=== PATIENT | female | born 1980 | race Caucasian/White ===

== ENCOUNTER 2023-12-19 20:44 | Outpatient (REF) | payer OTHER, SELFPAY ==
[2023-12-23 11:13] LABS: Age Gdln ACOG Testing Note (.); HPV Aptima Negative (Negative); IGP, Aptima HPV, rfx 16/18,45 Note (.)
== END 2023-12-19 20:45 | disposition home or self-care (01) ==
LOC: LAB 20:44
PROVIDERS: Visit Provider Physician Assistant
DX: Z01.419 Encounter for gynecological examination (general) (routine) without abnormal findings (principal)
CPT/HCPCS: 87624; G0145

== ENCOUNTER 2024-05-02 13:43 | Outpatient (OUT) | payer OTHER, SELFPAY ==
--- NOTE | 2024-05-02 | MM_ITS ---
Patient Name: DAMIAN TORRES MR#: [id number] : 1980 Exam Date: 05/02/2024 Ordering Doctor: DR Conner Cobb . RADIOLOGY REPORT PROCEDURE: MM TOMOSYNTHESIS SCREENING BI COMPARISON: [facility] MAMM SCREEN 3D [facility] CAD, 11/18/2022. MG MAMM SCREEN 3D [facility] CAD, 07/08/2021. INDICATIONS: Screening for malignant neoplasm Calculator Name NCI Breast Cancer Risk Assessment Tool 5 Year Breast Cancer Risk 0.90% Lifetime Breast Cancer Risk 13.40% Personal Breast Cancer No Personal Ovarian Cancer No Treatments None Family Cancers Grandmother-maternal with throat cancer at age ~58. LOCATION: [facility] BREAST COMPOSITION: There are scattered areas of fibroglandular density. FINDINGS: DIAGNOSTIC CATEGORY 2--BENIGN FINDING. NO CHANGE FROM COMPARISON. Scattered benign-appearing calcifications are present. Scattered benign-appearing lymph nodes are present. RIGHT BREAST: No significant suspicious finding. LEFT BREAST: No significant suspicious finding. RECOMMENDATIONS: ROUTINE MAMMOGRAM AND CLINICAL EVALUATION IN 12 MONTHS. PLEASE NOTE: A NORMAL MAMMOGRAM DOES NOT EXCLUDE THE POSSIBILITY OF BREAST CANCER. A CLINICALLY SUSPICIOUS PALPABLE LUMP SHOULD BE BIOPSIED. Dictated by: Rudy Guerrero MD on 05/02/2024 at 15:38 Approved by: Rudy Guerrero MD on 05/02/2024 at 15:39
--- OUTSIDE RECORDS SUMMARY | 2024-05-02 14:05 | XMS_ITS | CCD ---
Author Organization [facility] Care Team Providers Care German Instructor Name Role Phone PHYSICIAN, DEFAULT Unavailable Unavailable PHYSICIAN, DEFAULT Unavailable Unavailable EBRAHEIM, CLAUDIA Unavailable Unavailable EBRAHEIM, CLAUDIA Unavailable Unavailable ZEV CARMONA Unavailable Unavailable IVON CERVANTES Unavailable Unavailable ATTARAN, JOCELYNE Unavailable Unavailable ATTARAN, JOCELYNE Unavailable Unavailable Christian Ham Primary Care Physician Unavail able Christian Ham Unavailable Unavailable Christian Ham Primary Care Physician Unavail able Berta Almeida Unavailable ADRY, DR LUIS Meyer Consulting Unavailable HELEN, DR DEL VALLE Primary Care Unavailable KRISTA ., DR GALLOWAY Attending Unavailable KRISTA ., DR GALLOWAY Admitting Unavailable KRISTA ., DR GALLOWAY Consulting Unavailable HELEN, DR DEL VALLE Primary Care Unavailable KRISTA ., DR GALLOWAY Consulting Unavailable KRISTA ., DR GALLOWAY Attending Unavailable KRISTA ., DR GALLOWAY Admitting Unavailable NILESH VELASCO Attending Unavailable Medications Current Medications Medication Drug Class(es) Dates Sig (Normalized) Sig (Original) Citalopram (3 sources) Serotonin Reuptake Inhibitor Citalopram Hydrobrom madhavi Active take 1 tablet by mouth once fahad y citalopram 10 mg oral tablet take 1 tablet (10 mg) by oral route once daily fluticasone propionate 0.05 mg/actuat metered dose nasal spray (1 source) Corticosteroid Start: 07-03-2022 take 2 spray(s) nasal route once daily Fluticasone Propionate 50 MCG/ACT 2 sprays Nasally Once a day for 14 day(s) Jun, Active predniSONE 20 mg oral tablet (1 source) Start: 07-03-2022 take 1 tablet by mouth every twelve hours predniSONE 20 MG 1 tablet Orally 2 times a day for 5 day(s) Jun, Active Completed/Discontinued Medications Medication Drug Class(es) Dates Sig (Normalized) Sig (Original) ascorbic acid 500 mg oral tablet (2 sources) Vitamin C Vitamin C 500 mg oral tablet folic acid 0.4 mg oral tablet (2 sources) take 1 tablet by mouth once daily folic acid 400 mcg oral tablet take 1 tablet (0.4 mg) by oral route once daily ketoconazole 20 mg/ml medicated shampoo (2 sources) Azole Antifungal Start: 01-15-2020 ketoconazole 2 % topical shampoo 01/15/2020 apply shampoo by topical route 2-3 times weekly norethindrone acetate 5 mg oral tablet (2 sources) take 3 tablets by mouth once daily norethindrone acetate 5 mg oral tablet take 3 tablets (15 mg) by oral route once daily 28 mg iron- 800 mcg oral tablet (2 sources) 28 mg iron- 800 mcg oral tablet triamcinolone acetonide 1 mg/ml topical cream (1 source) Corticosteroid Start: 09-10-2020 apply 1 g topically twice daily triamcinolone acetonide 0.1 % topical cream 09/10/2020 apply twice daily to affected area until flat; avoid on face and skin folds. Dispense 80 gm vitamin b6 100 mg oral tablet (2 sources) pyridoxine (dasha min B6) 100 mg oral tablet Problems Active Problems Problem Classification Problem Date Documented Date Episodic/Chronic Allergic reactions (3 sources) Contact dermatitis and other eczema, unspecified cause; Translations: [Dermatitis, unspecified] Onset: 01-15-2020 Episodic Immunizations and screening for infectious disease (1 source) Encounter for screening for human papillomavirus (HPV); Translations: [ENC SCREENING HUMAN PAPILLOMAVIRUS] Onset: 11-17-2022 Episodic Menstrual disorders (1 source) Secondary oligomenorrhea; Translations: [Secondary oligomenorrhea] Onset: 04-10-2018 Chronic Other and unspecified benign neoplasm (1 source) Benign neoplasm of skin, site unspecified Onset: 01-15-2020 Episodic Other and unspecified benign neoplasm (1 source) Hemangioma of skin and subcutaneous tissue Onset: 01-15-2020 Episodic Other screening for suspected conditions (not mental disorders or infectious disease) (8 sources) Encounter for screening mammogram for malignant neoplasm of breast; Translations: [Encounter for screening for malignant neoplasm of cervix] Onset: 11-15-2022 Episodic Other skin disorders (1 source) Other specified diseases of hair and hair follicles Onset: 01-15-2020 Episodic Other skin disorders (1 source) Hypertrophic scar Onset: 09-10-2020 Episodic Other skin disorders (1 source) Epidermal cyst Onset: 09-10-2020 Episodic Other upper respiratory infections (1 source) Acute laryngitis Episodic Residual codes; unclassified (1 source) Family history of malignant neoplasm of other organs or systems; Translations: [FAM HX MALIG NEOPLASM OTH ORGN/SYS] Onset: 11-26-2022 Episodic Unclassified (2 sources) Unknown / UNK(Unknown) Onset: 07-26-2017 Past or Other Problems Problem Classification Problem Date Documented Da te Episodic/Chronic Other and unspecified benign neoplasm (1 source) Other benign neoplasm of skin, unspecified Onset: 01-15-2020 Episodic Other and unspecified benign neoplasm (1 source) Hemangioma of skin and subcutaneous tissue Onset: 01-15-2020 Episodic Other non-traumatic joint disorders (4 sources) Pain in right ankle and joints of right foot; Translations: [PAIN IN RIGHT ANKLE AND JOINTS OF RIGHT FOOT] Onset: 07-26-2017 Episodic Other skin disorders (1 source) Follicular disorder, unspecified Onset: 01-15-2020 Episodic Unclassified (1 source) Cough R05.9 Varicose veins of lower extremity (2 sources) Asymptomatic varicose veins; Translations: [Asymptomatic varicose veins of bilateral lower extremities] Onset: 01-15-2020 Episodic Results Test Name Value Interpretation Reference Range Facility PAP ACOG PANEL 2: 30 to 65on 11-22-2022 . . Normal [facility] Comment on above: Result Comment: Perf ormed at: WB Performed By: #### [id number] #### [facility] [address] [address] [address] Sally Seth Age Gdln ACOG Testing 30-[address] [facility] Comment on above: Performed By: #### [id number] #### [facility] [address] [address] [address] Sally Seth DIAGNOSIS: Comment [facility] Comment on above: Result Comment: NEGA TIVE FOR INTRAEPITHELIAL LESION OR MALIGNANCY. Performed at: WB Performed By: #### [id number] #### [facility] [address] [place] [address] Dr. Sally Seth HPV Aptima Negative Normal Negative [facility] Comment on above: Result Comment: This nucleic acid amplification test detects fourteen high-risk HPV types (16,18,31,33,35,39,45,51,52,56,58,59,66,68) without differentiation. Performed at: =G Performed By: #### [id number] #### [facility] [address] [place] [address] Dr. Sally Seth HPV Genotype Reflex Comment Normal [facility] Comment on above: Result Comment: Crit eria not met, HPV Genotype not performed. Performed at: WB Performed By: #### [id number] #### [facility] [address] [place] [address] Dr. Sally Seth Methodology: Comment Normal [facility] Comment on above: Result Comment: This liquid based ThinPrep(R) pap test was screened with the use of an image guided system. Performed at: WB Performed By: #### [id number] #### [facility] [address] [place] [address] Dr. Sally Seth Note: Comment Normal [facility] Comment on above: Result Comment: The Pap smear is a screening test designed to aid in the detection of premalignant and malignant conditions of the uterine cervix. It is not a diagnostic procedure and should not be used as the sole means of detecting cervical cancer. Both false-positive and false-negative reports do occur. . Performed at: WB Performed By: #### [id number] #### [facility] [address] [place] [address] Dr. Sally Seth Performed by: Comment Normal [facility] Comment on above: Result Comment: Wes Peterson, Plier Worker (ASCP) Performed at: WB Performed By: #### [id number] #### [facility] [address] [place] [address] Dr. Sally Seth Specimen adequacy: Comment Normal [facility] Comment on above: Result Comment: Sati sfactory for evaluation. Endocervical and/or squamous metaplastic cells (endocervical component) are present. Performed at: WB Performed By: #### [id number] #### [facility] [address] [address] [address] Sally Seth MG MAMM SCREEN 3D QUINTON CADon 11-18-2022 MG MAMM SCREEN 3D QUINTON CAD Patient: CARLINE DASILVA Exam Date: 11/18/2022 : 1980 Gender:F Ordering : DR NILESH VELASCO . Admission #: [id number] Family : Order #: [id number] CLICK HERE TO VIEW EXAM RADIOLOGY REPORT PROCEDURE: MAMMOGRAM SCREENING 3D BILATERAL CAD COMPARISON: MG MAMM SCREEN 3D QUINTON CAD, 07/08/2021. INDICATIONS: Screening for malignant neoplasm of breast Calculator Name NCI Breast Cancer Risk Assessment Tool 5 Year Breast Cancer Risk 0.80% Lifetime Breast Cancer Risk 13.50% Personal Breast Cancer No Personal Ovarian Cancer No Treatments None Family Cancers Grandmother-maternal with throat cancer at age 58. LOCATION: [facility] BREAST COMPOSITION: Scattered areas fibroglandular density. FINDINGS: DIAGNOSTIC CATEGORY 2--BENIGN FINDING. NO CHANGE FROM COMPARISON. Scattered benign-appearing nodules are present. Scattered benign-appearing calcifications are present. Scattered benign-appearing lymph nodes are present. RIGHT BREAST: No significant suspicious finding. LEFT BREAST: No significant suspicious finding. RECOMMENDATIONS: ROUTINE MAMMOGRAM AND CLINICAL EVALUATION IN 12 MONTHS. PLEASE NOTE: A NORMAL MAMMOGRAM DOES NOT EXCLUDE THE POSSIBILITY OF BREAST CANCER. A CLINICALLY SUSPICIOUS PALPABLE LUMP SHOULD BE BIOPSIED. Dictated by: Luis Rider MD on 11/19/2022 at 09:50 Approved by: Luis Rider MD on 11/19/2022 at 09:[address] [facility] COVID/FLU/RSV RT-PCRon 07-03 SARS-CoV-2 (COVID-19) RNA LEILA+probe Ql (Unsp spec) Negative [facility] Other COVID/FLU/RSV RT-PCR Negative [facility] Other CNOVon 04-10-2018 CNOV Office Visit (REIMN) ---CARLINE DASILVA ([id number]) 1980 FDate Time Provider Department04/10/18 10:00 AM JOCELYNE SANTIAGO During your visit today, we recorded the following information about you: Blood pressure Weight Height Last Period 120/60 77.1 kg 1.702 m 03/30/18Jenn Kraus, RN, RN 04/10/2018 10:25 AM [facility]ILITY CENTERDate: 04/10/2018Consultation Requested By:Dr. Venegas Vidya is a 37 year old female presenting with the following history:HISTORY OF PRESENT ILLNESS:Carline Dasilva is a 37 year old year old No obstetric history on file.female with infertility 18 months. Hx of oligomenorrhea and then took ocpstill apr 2013. Then achieved two spontaneous pregnancies. The last one shebreat fed. Because she has a cycle that was longer she was then started onocps for November and December. Since then her cycles are longer.She feels her cycles are more irreg that in the past and wonders what may havecontributed to it. She thinks she has gained about 5 lbs- 10 lbs. Minimalamount of excess hair.OB History-03/2014- SAB, spont conception, DANDC at 10 weeks11/2015, took one year to achieve. , 4th degree tear, 9 lb baby.Fertility Evaluations and Treatments: Eval Checklist Results Date Comments HSG Hysteroscopy Laparoscopy OPK (Ovulation Predictor Kit) Ovarian Nye Saline Ultrasound Semen Analysis Normal 2014 Ultrasound Other (See comments)FSH- 3.6LH- 11.2She has picked up LH surges in the past.MENSTRUAL HISTORY:Menarche Age: 13Length of Cycle: 27-53 days Irregular Days: 4-5 daysMenstrual Flow: LightMenstrual Symptoms: CrampingPatient's last menstrual period was 03/30/2018.PAST MEDICAL HISTORYDiagnosis Date- DepressionPAST SURGICAL HISTORYProcedure Laterality Date- PAST SURGICAL HISTORY OF rectovaginal fistula repair, 2016 s/p 4th degree tear. nasal septoplastyWisdom teethDANDCFAMILY HISTORYProblem Relation Age of Onset- Anxiety disorder Mother- Cancer Maternal Grandmother neck- Diabetes Paternal GrandmotherGENETIC HISTORY: noneOCCUPATION/EXERCISE:Occu pation: teacherExercise: nonePartner InformationPartner's Name: Arnoldo Morales'irene : 03/18/1979 Partner's MRN:Partner's Ethnicity: NOT or Partner's Race: WhiteOccupation: mechanical engineerLegally ?: Yes Years together: 6 yearsDo they have children together?: Yes Ages of the children: 2 yearsSmoking History: NeverUse of alchol: 3-4 drinks a week Use of Drugs: noneMedications: multivitamin lialdia Pertinent Medical Hx: ulcerative colitisPertinent Surgical Hx: finger surgery cyst removal on leg wisdom teeth removedPertinent Genetic Hx: noneMEDICATIONS:No current outpatient prescriptions on file prior to visit.No current facility-administered medications on file prior to visit.ALLERGIES:Patient has no known allergies.[facility] CarePAP Results: Normal Date: Results: Negative Date: Results: NoLast Mammogram: n/aBlood Type: No results found for this basename: aborhdNo results found for this basename: rubqnt,vzvgASSESSMENT: infertilityPLAN: will get blood work today. Then will begin exercise regimen and then may beginclomid 50 mg days 5-9 for three cycles. Will try ovulation induction. They willlet me know if they want to do the HSg and SA as they move along.I spent a total of 40 minutes face to face with the patient. Greater than 50%of the time was spent counseling and coordinating the care based on my plan andassessment as noted.Cinthya Blanco Provider: SELF [200]Allergies As of Date: 04/10/2018(No Known Allergies)Date Reviewed: 04/10/2018Reviewed by: Jenn Kraus RN - Fully AssessedReason for Visit: New Patient [172]Primary Visit Diagnosis:Female infertility [N97.9] Other Visit Diagnosis:Secondary oligomenorrhea [N91.4]Order(s):TSH BLD [SQTSH] Order #: [id number] FUTURE PROLACTIN BLD [SQPROL] Order #: [id number] FUTURE TESTOSTERONE TOTAL [SQTESTO] Order #: [id number] FUTURE clomiPHENE (SEROPHENE) 50 mg tabletTake 1 tablet by mouth once daily. Days 5-9Disp: 5 tabletRfl: 2Prescriptions as of 04/10/2018 Sig: 1 + 1 ORAL Take by mouth. CLOMIPHENE CITRATE 50 MG TABL* Take 1 tablet by mouth once d*Problem List As Of Date: 04/10/2018(None)Prescription s ordered this encounter Disp Refills Start End CLOMIPHENE CITRATE 50 MG TABLET 5 ta* 2 04/10/2018 Route: ORAL Sig: Take 1 tablet by mouth once daily. Days - Status:Closed by JOCELYNE SANTIAGO MD on 04/20/18 Normal [facility] CONSULT PROGon 04-10-2018 Protein mass conc HNO ID: [id number] thor: Jenn (Rn) DAVID Krauservice: (none)Author Type: Registered NurseType: Consult Progress NoteFiled: 04/20/2018 9:25 AMNote Text:[facility] FERTILITY CENTERDate: 04/10/2018Consultation Requested By:Dr. Venegas Vidya is a 37 year old female presenting with the followinghistory:HISTORY OF PRESENT ILLNESS:Carline Dasilva is a 37 year old year old No obstetric history on file.female with infertility 18 months. Hx of oligomenorrhea and then tookocps till apr 2013. Then achieved two spontaneous pregnancies. The lastone she breat fed. Because she has a cycle that was longer she was thenstarted on ocps for November and December. Since then her cycles are longer.She feels her cycles are more irreg that in the past and wonders what mayhave contributed to it. She thinks she has gained about 5 lbs- 10 lbs.Minimal amount of excess hair.OB History-03/2014- SAB, spont conception, DANDC at 10 weeks11/2015, took one year to achieve. , 4th degree tear, 9 lb baby.Fertility Evaluations and Treatments: Eval Checklist Results Date Comments HSG Hysteroscopy Laparoscopy OPK (Ovulation Predictor Kit) Ovarian Nye Saline Ultrasound Semen Analysis Normal 2014 Ultrasound Other (See comments)FSH- 3.6LH- 11.2She has picked up LH surges in the past.MENSTRUAL HISTORY:Menarche Age: 13Length of Cycle: 27-53 days Irregular Days: 4-5 daysMenstrual Flow: LightMenstrual Symptoms: CrampingPatient's last menstrual period was 03/30/2018.PAST MEDICAL HISTORYDiagnosis Date- DepressionPAST SURGICAL HISTORYProcedure Laterality Date- PAST SURGICAL HISTORY OF rectovaginal fistula repair, 2016 s/p 4th degree tear. nasal septoplastyWisdom teethDANDCFAMILY HISTORYProblem Relation Age of Onset- Anxiety disorder Mother- Cancer Maternal Grandmother neck- Diabetes Paternal GrandmotherGENETIC HISTORY: noneOCCUPATION/EXERCISE:Occu pation: teacherExercise: nonePartner InformationPartner's Name: Arnoldo Morales'irene : 03/18/1979 Partner's MRN:Partner's Ethnicity: NOT or Partner's Race: WhiteOccupation: mechanical engineerLegally ?: Yes Years together: 6 yearsDo they have children together?: Yes Ages of the children: 2 yearsSmoking History: NeverUse of alchol: 3-4 drinks a week Use of Drugs: noneMedications: multivitamin lialdia Pertinent Medical Hx: ulcerativecolitisPertinent Surgical Hx: finger surgery cyst removal on leg wisdom teethremoved Pertinent Genetic Hx: noneMEDICATIONS:No current outpatient prescriptions on file prior to visit.No current facility-administered medications on file prior to visit.ALLERGIES:Patient has no known allergies.[facility] CarePA Results: Normal Date: Results: Negative Date: Results: NoLast Mammogram: n/aBlood Type: No results found for this basename: aborhdNo results found for this basename: rubqnt,vzvgASSESSMENT: infertilityPLAN: will get blood work today. Then will begin exercise regimen and then maybegin clomid 50 mg days 5-9 for three cycles. Will try ovulationinduction. They will let me know if they want to do the HSg and SA as theymove along.I spent a total of 40 minutes face to face with the patient. Greater than50% of the time was spent counseling and coordinating the care based on myplan and assessment as noted.Jocelyne Santiago MD [facility] 04-10-2018 Protein mass conc 4.7 ng/mL Normal 4.5-26.8 [facility] Comment on above: Performed By: #### P ROL, TSH, TESTO ####[facility] [place], [place] [phone] TSHon 04-10-2018 Thyrotropin Qn 1.880 uU/mL Normal 0.400-5.500 [facility] Comment on above: Result Comment: If t he patient is , TSH reference range varies by gestational period:First Trimester 0.100-2.500 uU/mLSecond Trimester 0.200-3.000 uU/mLThird Trimester 0.300-3.000 uU/mLReferences: 1. Aguero L, Trace M, Russell EK, et al. Management of Thyroid Dysfunction during and : An Endocrine Society Clinical Practice Guideline. J Clin Endocrinol Metab, 2012:97:6368-2926. 2. Staish RALPH. Overview of thyroid disease in . UpToDate. 2016. Accessed on February 06, 2016. Performed By: #### P ROL, TSH, TESTO ####[facility] [place], [place] [phone] Testosteroneon 04-10-2018 Testosterone mass conc 25 ng/dL Normal <40 [facility] Comment on above: Performed By: #### P ROL, TSH, TESTO ####[facility] [place], [place] [phone] ANKLE RIGHT 2 VWSon 07-27-20 17 ANKLE RIGHT 2 VWS [facility] [id number] [place] [address] Patient Name: CARLINE DASILVA : 1980Sex: FAge: Race: WhiteMRN: [id number]. Location: 83Patient Status: Date: 07/26/2017 4:25:00 PMCompleted Date: 07/27/2017 12:20 PMRequesting Provider: CLAUDIA MACE Attending Provider: Report Copy To: Signs & Symptoms: M25.571 Pain in right ankle and joints of right foot [id number]: AthenaComments: , , Views (X-RAY, ANKLE): AP, Lateral with Stress , Weight Bearing?: N , , , Ordering Provider - CLAUDIA MACE MD , Rendering Provider - CLAUDIA MACE MD , Exam: ANKLE RIGHT 2 VWSAccession #: [id number] ANK LE RIGHT 2 VWS 07/27/2017 12:20 PM EST SIGNS AND SYMPTOMS: M25.571 Pain in right ankle and joints of right foot I10 TECHNOLOGIST COMMENTS: pt right ankle stressed by Dr. Florian QUESTION FOR THE RADIOLOGIST: , , Views (X-RAY, ANKLE): AP, Lateral with Stress , Weight Bearing?: N , , , Ordering Provider - CLAUDIA MACE MD , Rendering Provider - CLAUDIA MACE MD , PROTOCOL: AP(PA) and Lateral views were obtained. COMPARISON: None FINDINGS: Soft tissues:Mild swelling Bones:No fracture or dislocation Joints:Maintained No significant motion on stress IMPRESSION: No bony abnormality Electronically signed by:Colt Parrish. Transcribed by: [email or web address], User Resident: Electronically Signed by: COLT PARRISH @ 07/27/2017 01:37 PM Normal [facility] Comment on above: Order Comment: , , V iews (X-RAY, ANKLE): AP, Lateral with Stress , Weight Bearing?: N , , , Ordering Provider - CLAUDIA MACE MD , Rendering Provider - CLAUDIA MACE MD , Vital Signs Date Time Vital Sign Value Performing Clinician Facility 07-03-2022 13:35-0500 Body height 170.18 cm Berta Pattersonmond Other [facility] Other 07-03-2022 13:35-0500 Body mass index (BMI) [Ratio] 26.62 kg/m2 Berta Pattersonmond Other [facility] 07-03-2022 13:35-0500 Body temperature 98 [degF] Berta Pattersonmond Other [facility] Other 07-03-2022 13:35-0500 Body weight 77.11 kg Berta Almeida Other [facility] Other 07-03-2022 13:35-0500 Respiratory rate 18 /min Berta Pattersonmond Other [facility] Other 07-03-2022 13:35-0500 SaO2% (BldA) [Mass fraction] 99 % Berta Pattersonmond Other [facility] Other Encounters Encounter Date Encounter Type Care Provider Facility Start: 12-19-2023 End: 12-19-2023 ambulatory NILESH VELASCO Not Available Start: 11-18-2022 End: 11-19-[address] LUIS RIDER Facility:[facility] Start: 11-15-2022 End: 11-15-[address] IVON CERVANTES Facility:[facility] Start: 07-03-2022 End: 07-03-2022 ambulatory Berta Almeida Other [facility] Other Start: 07-03-2022 Office outpatient visit 15 minutes Berta Almeida [facility] Start: 09-10-2020 Office outpatient visit 15 minutes Shira Ham Other [facility] Office Start: 01-15-2020 Office outpatient ne w 30 minutes Christian Ham Other [facility] Office Start: 04-10-2018 End: 04-20-2018 Patient encounter JOCELYNE SANTIAGO [facility] Start: 07-26-2017 End: 07-27-2017 Ambulatory CLAUDIA EBRAHEIM Facility:[facility] Start: 07-25-2017 End: 07-26-2017 Ambulatory DEFAULT PHYSICIAN Facility:[facility] Procedures Date Procedure Procedure Detail Performing Clinician Start: 09-10-2020 Doc meds verified w/pt or re Christian Fatoumata Start: 01-15-2020 Doc meds verified w/pt or re Christian Fatoumata Payers Date Payer Category Payer Unknown [id number] [id number] [id number] 1980 Unknown [id number] [id number] [id number] 1980 Unknown [id number] [id number] [id number] 1958 Unknown [id number] Unknown [id number] Unknown Social History Date Type Detail Facility Unknown if ever smoked [facility] Other Sex Assigned At Sex Assigned At Bir th [facility] Other Evaluation note 07-03-2022 Note Date & Type Note Facility 07-03-2022 Evaluation note Encounter Date Diagnosis Assessment Notes Jun, Cough (ICD-10 - R05.9) Jun, Laryngitis (ICD-10 - J04.0) Laryngitis home care material was printed Drink plenty fluids, get plenty of rest. Take the prednisone as prescribed until gone. Use the Flonase nasal inhaler as prescribed until your symptoms improve. You may continue to take nins-gho-mtavk er cold medicines for your symptoms as well. Follow-up with your family physician if no improvement in 2 to 3 days [facility] Other History general Narrative - Reported Note Date & Type Note Facility History general Narrative - Reported Type Medical History post depression Medical History sclerotherapy Surgical History wisdom teeth Surgical History 4th degree vaginal tear. Surgical History C section Surgical History D&C 2015 Surgical History septoplasty Hospitalization History see above [facility] Other Summary Purpose Family History No Family History Records FoundNo Family History Records FoundNo Family History Records FoundNo Family History Records Found Advance Directives No Advanced Directives Records FoundNo Advanced Directives Records FoundNo Advanced Directives Records FoundNo Advanced Directives Records Found Additional Source Comments INFORMATION SOURCE (unrecogn ized section and content) DATE CREATED AUTHOR 02/14/2018 [facility] DATE CREATED AUTHOR AUTHOR'S ORGANIZ ATION [facility] [place] DATE CREATED AUTHOR AUTHOR'S ORGANIZ ATION 11/27/2022 [facility] DATE CREATED AUTHOR AUTHOR'S ORGANIZ ATION 12/20/2023 [facility] EPIC REASON FOR VISIT (unrecogniz ed section and content) YELLOW PHLEGM FOR RECORDS PERTAINING TO PATIENTS WHO ARE OR HAVE BEEN ENROLLED IN A CHEMICAL DEPENDENCY/SUBSTANCEABUSE PROGRAM, SOME INFORMATION MAY BE OMITTED. This clinical summary was aggregated from multiple sources. Caution should be exercised in using it in the provision of clinical care. This summary normalizes information from multiple sources, and as a consequence, information in this document may materially change the coding, format and clinical context of patient data. In addition, data may be omitted in some cases. CLINICAL DECISIONS SHOULD BE BASED ON THE PRIMARY CLINICAL RECORDS. [employer] provides no warranty or guarantee of the accuracy or completeness of information in this document.
== END 2024-05-02 13:44 | disposition home or self-care (01) ==
LOC: MAMMO 13:43
PROVIDERS: Visit Provider Obstetrics & Gynecology
DX: Z12.31 Encounter for screening mammogram for malignant neoplasm of breast (principal); Z80.8 Family history of malignant neoplasm of other organs or systems
CPT/HCPCS: 77063; 77067

== ENCOUNTER 2024-12-31 16:18 | Outpatient (REF) | payer OTHER, SELFPAY | END 2024-12-31 16:19 | disposition home or self-care (01) | LOC: LAB 16:18 | PROVIDERS: Visit Provider Obstetrics & Gynecology | DX: Z01.419 Encounter for gynecological examination (general) (routine) without abnormal findings (principal) | CPT/HCPCS: 87624; 88175 ==

== ENCOUNTER 2024-12-31 17:59 | Emergency (ER) | payer OTHER, SELFPAY ==
[2024-12-31 18:04] VITALS: BP 126/81; PULSE 69; TEMP 37.2; O2SAT 100; BMI 26.6
--- NOTE | 2024-12-31 18:10 | ECG_ITS ---
[facility] Test Date: 2024-12-31 Pat Name: DAMIAN TORRES Department: Room: - Gender: Female Distribution Engineer: : [id number] Requested By: [id number] Order Number: [id number] Reading MD: JUAN M VINSON M.D. Measurements Intervals [place] Rate: 66 P: 54 MT: 122 QRS: 69 QRSD: 82 T: 57 QT: 410 QTc: 424 Interpretive Statements 1100 Sinus rhythm 9110 normal ECG No previous ECG available for comparison Electronically Signed On 01-01-2025 17:51:54 EDT by JUAN M VINSON M.D.
--- NOTE | 2024-12-31 18:19 | ED.GENADUL1 ---
HPI HPI - General Adult General Chief complaint: Chest Pain Stated complaint: CHEST PAINS Time Seen by Provider: 12/31/24 18:10 Source: patient Mode of arrival: walk-in History of Present Illness HPI narrative: Patient is a 44-year-old female who presents to the emergency department today for evaluation of concerns for epigastric pain. Pain began this morning and has overall been a constant pain that was initially temporary alleviated by taking Gas-X. She did eat lunch and following this she has had increasing pain to the epigastric region. Lower chest discomfort. Otherwise no shortness of breath, diaphoresis, or nausea/vomiting. No diarrhea. She denies any cardiovascular history including MA or CVA. No cardiovascular risk factors. She additionally abdominal surgeries or abdominl history. Related Data Home Medications ?Medication ?Instructions ?Recorded ?Confirmed No Known Home Medications 12/31/24 12/31/24 Allergies Allergy/AdvReac Type Severity Reaction Status Date / Time No Known Drug Allergies Allergy Verified 12/31/24 18:04 Opioid HPI Opioid Management Most Recent Opioid Data: Last Pain Scale 4 Today, 20:14 Last MAR Pain Assessment Today, 20:14 Review of Systems ROS Status of ROS 10 or more systems reviewed and unremarkable except as noted in history and below PFSH PFSH Social History Little interest or pleasure in doing things: not at all Feeling down, depressed, or hopeless: not at all Exam Narrative Exam Narrative: Constituational: Awake/ alert, no apparent distress, well hydrated HENMT: normocephalic, external ears normal, moist oral mucous membranes and oropharynx normal Eyes: EOMs intact bilaterally and conjunctivae normal Neck: ROM intact Chest: inspection of chest normal Respiratory: Normal respiratory effort, clear to auscultation bilaterally Cardio: regular rate and regular rhythm GI: +mild tenderness to epigastric region with palpation, no rebound or guarding, abdomen is otherwise soft, normal bowel sounds Back: nontender MSK: full ROM and normal capillary refill Skin: no rashes Neuro: no focal deficits Psych: mental status grossly normal Constitutional Vital Signs, click to edit/add: Last Vital Signs Temp 98.9 F 12/31/24 18:04 Pulse 69 12/31/24 18:04 Resp 16 12/31/24 18:04 BP 126/81 12/31/24 18:04 Pulse Ox 100 12/31/24 20:21 O2 Del Method Room Air 12/31/24 20:21 Course Vital Signs Vital signs: Vital Signs Temperature 98.9 F 12/31/24 18:04 Pulse Rate 69 12/31/24 18:04 Respiratory Rate 16 12/31/24 18:04 Blood Pressure 126/81 12/31/24 18:04 Pulse Oximetry 100 12/31/24 18:04 Oxygen Delivery Method Room Air 12/31/24 18:04 Temperature 98.9 F 12/31/24 18:04 Pulse Rate 69 12/31/24 18:04 Respiratory Rate 16 12/31/24 18:04 Blood Pressure 126/81 12/31/24 18:04 Pulse Oximetry 100 12/31/24 20:21 Oxygen Delivery Method Room Air 12/31/24 20:21 Medical Decision Making MDM Narrative Medical decision making narrative: Well-appearing 44-year-old female who presented to the emergency department today for evaluation of concerns for epigastric abdominal pain. Initial examination vital signs overall stable with exception to noted epigastric pain otherwise no acute abdominal findings on exam. She does not appear to be exhibiting any ischemic symptoms and does appear euvolemic on exam. EKG without acute changes and troponin negative x 1. Chest x-ray stable. Significant leukocytosis, anemia, thrombocytopenia. Electrolytes including renal and hepatic function stable. Normal lipase. CT imaging of abdomen pelvis is correlated with acute cholecystitis. Patient received supportive measures initially with GI cocktail with minimal improvement and did subsequently receive Zosyn IVPB, and morphine. Did discuss patient's condition with general surgeon Dr. Mariee 1950 at [facility] -> patient for transfer. Things with the patient. Patient wishes to transfer to receiving hospital with private vehicle. IV was removed just prior to discharge. Pain is controlled. To proceed straight to [facility] for admission for acute cholecystitis. Medical Records Medical records reviewed: Yes I reviewed the patient's medical records Lab Data Lab results reviewed: Yes I reviewed the patient's lab results Labs: Lab Results 12/31/24 12/31/24 Range/Units 18:24 19:56 WBC 9.3 (4.0-11.0) 10^3/uL RBC 4.28 (4.20-5.40) 10^6/uL Hgb 13.4 (12.0-16.0) g/dL Hct 39.1 (36.0-48.0) % MCV 91.4 (81.0-99.0) fL MCH 31.3 (26.7-34.0) pg MCHC 34.3 (29.9-35.2) g/dL RDW 12.5 (11.0-15.0) % Plt Count 253 (150-450) 10^3/uL MPV 9.0 L (9.5-13.5) fL Neut % (Auto) 73.7 (43.0-75.0) % Lymph % (Auto) 19.0 L (20.5-60.0) % [place] % (Auto) 6.2 (1.7-12.0) % Eos % (Auto) 0.4 L (0.9-7.0) % Baso % (Auto) 0.4 (0.2-2.0) % Neut # (Auto) 6.8 H (1.4-6.5) 10^3/uL Lymph # (Auto) 1.8 (1.2-3.8) 10^3/uL [place] # (Auto) 0.6 (0.3-0.8) 10^3/uL Eos # (Auto) 0.0 (0.0-0.7) 10^3/uL Baso # (Auto) 0.0 (0.0-0.1) 10^3/uL Abs Immat Gran (auto) 0.03 (0.00-0.03) 10^3/uL Imm/Tot Granulo (auto) 0.3 (0.0-0.5) % Sodium 137 (136-145) mmol/L Potassium 3.9 (3.5-5.1) mmol/L Chloride 102 (98-107) mmol/L Carbon Dioxide 30.5 (21.0-32.0) mmol/L Anion Gap 8.4 BUN 14.0 (7.0-18.0) mg/dL Creatinine 0.94 (0.55-1.02) mg/dL Est GFR ( Amer) >60 (>=60 mL/min/1.73m^2) Est GFR (Non-Af Amer) >60 (>=60 mL/min/1.73m^2) BUN/Creatinine Ratio 14.9 Glucose 99 (74-106) mg/dL Calcium 9.4 (8.5-10.1) mg/dL Total Bilirubin 0.3 (0.2-1.0) mg/dL AST 15 (15-37) U/L ALT 24 (14-59) U/L Alkaline Phosphatase 67 (46-116) U/L Troponin I High Sens <4.0 L (4.0-51.3) pg/mL Total Protein 7.5 (6.4-8.2) g/dL Albumin 3.8 (3.4-5.0) g/dL Globulin 3.7 g/dL Albumin/Globulin Ratio 1.0 Lipase 39.0 (16.0-77.0) U/L Urine Color Lt. yellow (YELLOW) Urine Clarity Clear (CLEAR) Urine pH 6.5 (5.0-9.0) Ur Specific [place] <=1.005 A (1.005-1.025) Urine Protein Negative (NEG/TRACE) mg/dL Urine Glucose (UA) Negative (NEGATIVE) mg/dL Urine Ketones Negative (NEGATIVE) mg/dL Urine Occult Blood Trace-i (NEGATIVE) Urine Nitrite Negative (NEGATIVE) Urine Bilirubin Negative (NEGATIVE) Urine Urobilinogen 0.2 (0.2-1.0) EU/dL Ur Leukocyte Esterase Negative (NEGATIVE) Urine RBC None seen (0-2) #/HPF Urine WBC None seen (NONE SEEN) #/HPF Ur Squamous Epith Cells Rare (NONE/RARE) #/LPF Urine Crystals Seen A (None Seen) #/HPF Amorphous Sediment Few Urine Bacteria Trace A (NONE SEEN) #/HPF Urine Casts None seen (NONE SEEN) #/LPF Urine Mucus None seen (NONE SEEN) Ur Culture Indicated? No Imaging Data Chest x-ray: Attestation: I have reviewed the pertinent imaging results. Radiologist's impression: Stable findings CT scan - abdomen: Radiologist's impression: Cholelithiasis with findings concerning for cholecystitis ECG Data Attestation: I personally reviewed and interpreted this ECG as follows: (EKG shows SR with HR 66, no acute/ ischemic changes) Discharge Plan Discharge Chief Complaint: Chest Pain Clinical Impression: Cholecystitis Patient Disposition: [facility] Discharge location: [facility] Condition: Good Mode of Transportation: Private Vehicle
[2024-12-31 18:27] VITALS: PULSE 62
[2024-12-31 18:32] LABS: Basophils Percent Auto 0.4 % (0.2-2.0); Eosinophils Percent Auto 0.4 % (0.9-7.0); Hematocrit 39.1 % (36.0-48.0); Hemoglobin 13.4 g/dL (12.0-16.0); Immature Granulocytes Abs Auto 0.03 10^3/uL (0.00-0.03); Immature Granulocytes Pct Auto 0.3 % (0.0-0.5); Lymphocytes Absolute Auto 1.8 10^3/uL (1.2-3.8); Mean Corpuscular HGB Conc 34.3 g/dL (29.9-35.2); Mean Corpuscular Hemoglobin 31.3 pg (26.7-34.0); Mean Corpuscular Volume 91.4 fL (81.0-99.0); Monocytes Absolute Auto 0.6 10^3/uL (0.3-0.8); Monocytes Percent Auto 6.2 % (1.7-12.0); Neutrophils Absolute Auto 6.8 10^3/uL (1.4-6.5); Neutrophils Percent Auto 73.7 % (43.0-75.0); Platelet Count 253 10^3/uL (150-450); Red Blood Count 4.28 10^6/uL (4.20-5.40); Red Cell Distribution Width 12.5 % (11.0-15.0); White Blood Count 9.3 10^3/uL (4.0-11.0)
[2024-12-31 18:45] LABS: Alanine Aminotransferase 24 U/L (14-59); Albumin Level 3.8 g/dL (3.4-5.0); Alkaline Phosphatase 67 U/L (46-116); Anion Gap 8.4; Aspartate Amino Transferase 15 U/L (15-37); BUN Creatinine Ratio 14.9; Bilirubin Total 0.3 mg/dL (0.2-1.0); Calcium 9.4 mg/dL (8.5-10.1); Carbon Dioxide 30.5 mmol/L (21.0-32.0); Chloride 102 mmol/L (98-107); Estimated GFR (African America >60 (>=60 mL/min/1.73m^2); Estimated GFR (Non-African Ame >60 (>=60 mL/min/1.73m^2); Globulin 3.7 g/dL; Glucose 99 mg/dL (74-106); Potassium 3.9 mmol/L (3.5-5.1); Sodium 137 mmol/L (136-145); Total Protein 7.5 g/dL (6.4-8.2)
[2024-12-31 18:47] LABS: Troponin I High Sensitivity <4.0 pg/mL (4.0-51.3)
[2024-12-31] MEDS: MORPHINE SULFATE 2 MG/ML SYRINGE IV (20:14)
[2024-12-31] MEDS: PIPERACILLIN SODIUM/TAZOBACTAM 3.375 GM in 0.9 % SODIUM CHLORIDE 50 ML IV (20:15)
[2024-12-31 20:21] VITALS: PULSE 72; O2SAT 100
[2024-12-31 20:27] LABS: Bilirubin Urine NEGATIVE (NEGATIVE); Blood Urine TRACE-I (NEGATIVE); Clarity Urine CLEAR (CLEAR); Color Urine LT. YELLOW (YELLOW); Glucose Urine UA NEGATIVE (NEGATIVE); Ketones Urine NEGATIVE (NEGATIVE); Leukocyte Esterase Urine NEGATIVE (NEGATIVE); Nitrite Urine NEGATIVE (NEGATIVE); Protein Urine NEGATIVE (NEG/TRACE); Specific Gravity Urine <=1.005 (1.005-1.025); Urobilinogen Urine 0.2 EU/dL (0.2-1.0); pH Urine 6.5 (5.0-9.0)
[2024-12-31 20:32] LABS: Urine Microscopic Indicated YES
[2024-12-31 20:37] LABS: Amorphous Sediment Urine FEW; Bacteria Urine TRACE #/HPF (NONE SEEN); Cast Seen? NONE SEEN #/LPF (NONE SEEN); Crystals Seen? Seen #/HPF (None Seen); Mucus Urine NONE SEEN (NONE SEEN); RBC Urine NONE SEEN #/HPF (0-2); Squamous Epithelial Cell Urine RARE #/LPF (NONE/RARE); Urine Culture Indicated NO; WBC Urine NONE SEEN #/HPF (NONE SEEN)
--- NOTE | 2024-12-31 20:50 | PC.NURSE ---
this RN gave report to Radha RN at [facility]. Radha RN verbalized understanding and all questions answered. pt and aware of transfer. pt being drove private vehicle by . denies questions for this RN prior to transfer.
[2024-12-31 21:13] VITALS: PULSE 67; O2SAT 98
== END 2024-12-31 21:13 | disposition short-term general hospital (02) ==
PROVIDERS: Nurse Practitioner; Emergency Provider Emergency Medicine
DX: K80.00 Calculus of gallbladder with acute cholecystitis without obstruction (principal); Z01.419 Encounter for gynecological examination (general) (routine) without abnormal findings
CPT/HCPCS: 36415; 71045; 74177; 80053; 81001; 83690; 84484; 85025; 87624; 88175; 93005; 96365; 96375; 99285; J2270; J2543; Q9967